=== PATIENT | female | born 1980 | race Hispanic/Latino ===

== ENCOUNTER 2018-11-21 06:33 | Day surgery (SDC) | payer BC ==
[~2018-11-21 06:33] MED LIST: LACTATED RINGERS 1,000 ML IV SCH; NEURONTIN PO NR; PEPCID PO NR; TRANSDERM-SCOP TD NR; VERSED IV NR
[2018-11-21] MEDS ORDERED: DILAUDID IV PRN (07:21)
--- NOTE | 2018-11-21 07:22 | Anesthesia Day of Surgery ---
Anesthesia Day of Surgery - Day of Surgery Patient Examined: Yes Patient H&P Reviewed: Yes Patient is NPO: Yes
--- NOTE | 2018-11-21 07:22 | Anesthesia Consultation ---
Anesthesia Consult and Med Hx Date of service: 11/21/18 - Airway Anesthetic Teeth Evaluation: Good, Crowns (top right molar) ROM Head & Neck: Adequate Mental/Hyoid Distance: Adequate Mallampati Class: Class II Intubation Access Assessment: Probably Good - Pulmonary Exam CTA: Yes - Cardiac Exam Cardiac Exam: RRR - Pre-Operative Health Status ASA Pre-Surgery Classification: ASA1 Proposed Anesthetic Plan: General - Pulmonary Hx Smoking: No Hx Respiratory Symptoms: No - Cardiovascular System Hx Hypertension: No Hx Heart Attack/AMI: No Hx Percutaneous Transluminal Coronary Angioplasty (PTCA): No Hx Cardia Arrhythmia: Yes (hx palpitations w/ neg cardiac w/u per patient) - Central Nervous System Hx Seizures: No CVA: No Hx Psychiatric Problems: No - Gastrointestinal Hx Gastroesophageal Reflux Disease: Yes (controlled) - Endocrine Hx Renal Disease: No Hx Liver Disease: No Hx Insulin Dependent Diabetes: No Hx Non-Insulin Dependent Diabetes: No Hx Thyroid Disease: No - Other Systems Hx Alcohol Use: Yes (Occas) Hx Obesity: No - Additional Comments Anesthesia Medical History Comments: No hx anesthetic complications.
[2018-11-21] MEDS ORDERED: SILVER NITRATE TP ONE (07:28)
[2018-11-21] MEDS ORDERED: METHYLENE BLUE ONE (07:29)
[2018-11-21] MEDS ORDERED: MARCAINE 0.25% INFILTRATI ONE ×2 (07:29→09:13)
[2018-11-21] MEDS ORDERED: SUBLIMAZE ONE (07:42)
[2018-11-21] MEDS ORDERED: VERSED ONE (07:42)
[2018-11-21] MEDS ORDERED: DIPRIVAN 10 MG/ML IV ONE (07:42)
[2018-11-21] MEDS ORDERED: XYLOCAINE MPF 2% ONE (07:43)
[2018-11-21] MEDS ORDERED: ZEMURON IV ONE (07:44)
[2018-11-21] MEDS ORDERED: ANCEF/STERILE WATER 2 GM/20 ML IV NR (08:30)
--- NOTE | 2018-11-21 08:31 | Short Stay Summary ---
Short Stay Documentation Date of service: 11/21/18 Narrative H&P: Patient is a 38 year old who presented to the office initially for removal and replacement of iud, however, the IUD was unable to be removed and appeared to be stuck. - History Principal diagnosis: Retained IUD, undesired fertility H&P: obtained from office Past Medical History: No medical history Past Surgical History: No surgical history Social history: - Allergies and Medications Current Medications: Allergies No Known Allergies Allergy (Verified 11/20/18 13:24) Home Medications Medication Instructions Recorded Confirmed Last Taken Type No Known Home Medications [No 11/14/18 11/14/18 Unknown History Reported Home Medications] Active Medications Celecoxib (Celebrex) 200 mg PO PREOP NR Stop: 11/21/18 23:59 Last Admin: 11/21/18 07:25 Dose: 200 mg Documented by: Famotidine (Pepcid) 20 mg PO PREOP NR Stop: 11/21/18 23:59 Last Admin: 11/21/18 07:25 Dose: 20 mg Documented by: Gabapentin (Neurontin) 300 mg PO PREOP NR Stop: 11/21/18 23:59 Last Admin: 11/21/18 07:25 Dose: 300 mg Documented by: Hydromorphone HCl (Dilaudid) 0.5 mg IV Q10MIN PRN PRN Reason: Pain , Severe (7-10) Stop: 11/21/18 20:00 Lactated Ringer's (Lactated Ringers) 1,000 mls @ 100 mls/hr IV DIRECT TONE Last Admin: 11/21/18 07:25 Dose: 100 mls/hr Documented by: Cefazolin Sodium (Ancef/Sterile Water 2 Gm/20 Ml) 2 gm in 20 mls @ 80 mls/hr IV PREOP NR; Protocol Midazolam HCl (Versed) 2 mg IV PREOP NR Stop: 11/21/18 23:59 Scopolamine (Transderm-Scop) 1 each TD PREOP NR Stop: 11/21/18 23:59 Last Admin: 11/21/18 07:25 Dose: 1 each Documented by: - Physical exam General appearance: no acute distress Lungs: Clear to auscultation, Normal air movement Breasts: deferred Heart: Regular rate, Normal S1, Normal S2 Gastrointestinal: normal, normoactive bowel sounds Female Genitourinary: normal Rectal Exam: deferred - Brief post op/procedure progress note Date of procedure: 11/21/18 Pre-op diagnosis: Retained IUD, Undesired fertility Post-op diagnosis: same (with ovarian cyst) Procedure: 1. Hysteroscopic removal of IUD, 2. Bilateral salpingectomy, 3. Ovarian cy stectomy Anesthesia: GETA Findings: IUD with tail inverted, Normal uterus, tubes and ovaries, Drainage of ovarian cyst Surgeon: LIZBETH SANCHEZ Estimated blood loss: minimal Pathology: list (right and left tubes) Specimen disposition: to lab Condition: stable - Disposition Condition at discharge: Good Disposition: [id number] TO HOME OR SELFCARE Short Stay Discharge Plan Activity: advance as tolerated Weight Bearing Status: Weight Bear as Tolerated Diet: regular Follow up with: LIZBETH SANCHEZ MD [Staff Physician] - 14 Days Prescriptions: Ibuprofen [Motrin] 800 mg PO Q8HR PRN #30 tablet PRN Reason: Pain, Moderate (4-6) HYDROcodone/APAP 5-325 [[place] 5/325] 2 each PO Q4HR PRN #30 tablet PRN Reason: Pain
[2018-11-21] MEDS ORDERED: ANCEF/STERILE WATER 2 GM/20 ML 2 GM/20 ML SYRINGE IV NR (09:00)
[2018-11-21] MEDS ORDERED: DECADRON ONE (09:06)
[2018-11-21] MEDS ORDERED: ZOFRAN ONE (09:06)
[2018-11-21] MEDS ORDERED: NACL 0.9% IR ONE (09:13)
[2018-11-21] MEDS ORDERED: ROBINUL ONE (09:36)
[2018-11-21] MEDS ORDERED: BLOXIVERZ ONE (09:36)
[2018-11-21] MEDS ORDERED: LACTATED RINGERS 1,000 ML ONE (09:58)
[2018-11-21 10:52] VITALS: BP 117/70
--- NOTE | 2018-11-21 11:59 | Operative Report ---
Operative Report Operative Report: Preoperative diagnosis: 1. Retained IUD, 2. Undesired fertility Postoperative diagnosis: Same with right ovarian cysts Procedure: 1. Hysteroscopic removal of IUD, 2. Bilateral laparoscopic salpingectomy . 3. Drainage of right ovarian cyst Surgeon: Arleen Suazo Anesthesia: General EBL: Minimal IV fluids: 900 mL Urine output: 200 mL Findings: Inverted IUD, normal uterine cavity, Normal-appearing uterus tubes and left ovary, approximately 4 cm cyst on the right ovary Specimens: Portion of right and left fallopian tube Complications: None The patient was properly identified as herself. She was then taken to the OR with IV running and in place. She was given general anesthesia without difficulty. She was placed in a dorsal lithotomy position. She was then prepped and draped in normal sterile fashion. Attention was turned to the patient's vagina. Her bladder was drained of clear urine with a red rubber catheter. The speculum was then placed the patient's vagina. The cervix was visualized and grasped with tenaculum. The cervix then gently dilated up to approximately 10 mm. The strings of the IUD were visualized and attempts were made to pull them however it was unsuccessful. The hysteroscope was introduced into the uterine cavity. The IUD was visualized and appeared to have inverted itself such that the long arm of the IUD was pointed toward the uterine fundus. Using a hysteroscopic grasper, the long arm of the IUD was grasped and removed with out further difficulty. At this point the hysteroscope was removed from the patient's uterus. The acorn cannula was then inserted. The surgeon's gloves were changed and attention turned to the patient's abdomen. A small incision was made in the patient's umbilicus incision a 5 mm trocar was placed. The laparoscope confirmed intra-abdominal placement. The abdomen was insufflated with CO2 gas to approximately 25 mmHg. Both fallopian tubes were identified. With direct visualization a second trocar was placed through an incision in the left lower quadrant. Both tubes were found and followed out to the fimbriated ends. Each tube was cauterized at the portion nearest the cornua, then cauterized across the broad ligament until the tube was completely detached. There was excellent hemostasis at the end of this portion of the procedure. Each tube was handed off for pathology. Attention was then turned to the right ovary on which there was a 4 cm cyst. A needle was inserted into the ovary and approximately 20 mL of clear fluid was drained from this cyst. At this point the abdomen was deflated. All instruments were then removed from the abdomen. The incisions were then closed with 4-0 Monocryl. The incisions were also injected with quarter percent Marcaine. The patient tolerated the procedure well she was then awakened and taken recovery in stable condition. Sponge needle and instrument counts were correct 2.
--- NOTE | 2018-11-21 18:53 | Post Anesthesia Evaluation ---
- Post Anesthesia Evaluation Patient Participated: Yes Airway Patent: Yes Stable Respiratory Function: Yes Nausea/Vomiting: No Temp > 96.8F: Yes Pain Manageable: Yes Adequeate Hydration: Yes Anesthesia Complications: No Block Receding Appropriately: Not Applicable Patient on Ventilator: No
== END 2018-11-21 06:34 | disposition home or self-care (01) ==
LOC: OR 06:33
PROVIDERS: ATTEND Obstetrics & Gynecology
DX: Z30.2 Encounter for sterilization (principal); Z30.432 Encounter for removal of intrauterine contraceptive device; N83.201 Unspecified ovarian cyst, right side; I42.9 Cardiomyopathy, unspecified; K21.9 Gastro-esophageal reflux disease without esophagitis; Z72.89 Other problems related to lifestyle; Z98.890 Other specified postprocedural states; Z79.899 Other long term (current) drug therapy
CPT/HCPCS: 49322; 58562; 58670; 81025; 88300; 88302; J0690; J1100; J1170; J2250; J2405; J2704; J2710; J3010; J7120; Q9968